=== PATIENT | male | born 1955 | race Caucasian/White ===

== ENCOUNTER → 2017-12-25 | Outpatient (CLI) | payer OTHER | LOC: LAB 16:07 → LAB SHORT 16:07 | DX: R31.9 Hematuria, unspecified (principal); R30.9 Painful micturition, unspecified | CPT/HCPCS: 87077; 87086; 87186 ==

== ENCOUNTER → 2018-12-19 | Outpatient (CLI) | payer OTHER ==
[~2018-12-19] MED LIST: SILDENAFIL20 MG PO
== END | disposition home or self-care (01) ==
LOC: LAB 17:45 → LAB SHORT 17:45
DX: L08.9 Local infection of the skin and subcutaneous tissue, unspecified (principal)
CPT/HCPCS: 87070; 87205

== ENCOUNTER 2024-02-04 06:46 | Day surgery (SDC) | payer OTHER ==
[2024-02-04] VITALS (12 sets, daily range): BP systolic 93–140; BP diastolic 61–85
[~2024-02-04] VITALS: Ht 167.6 cm; Wt 81.9 kg
[~2024-02-04 06:46] MED LIST changes: +LISI10 PO; +TURMERIC500 M2 PO; +VITAMIN D310 MC4 PO; +ZINC PO
[2024-02-04] MEDS ORDERED: Ropivacaine 0.5% HCl/Pf 123.125 MG,EPINEPHrine HCL 0.25 MG,Ketorolac Tromethamine 15 MG... INFIL SCH (07:30)
[2024-02-04] MEDS ORDERED: Acetaminophen 500 MG Tab PO SCH (07:30)
[2024-02-04] MEDS ORDERED: Tranexamic Acid 100 ML IV SCH (07:30)
[2024-02-04] MEDS ORDERED: Lactated Ringer's 1,000 ML IV SCH ×2 (07:30→09:45)
[2024-02-04] MEDS ORDERED: CeFAZolin Sodium 2,000 MG in NS 100 ML IV SCH ×2 (07:30→17:00)
[2024-02-04] MEDS ORDERED: Chlorhexidine Mouth Care 15 ML UDC MT SCH (07:30)
[2024-02-04] MEDS ORDERED: OxyCODONE HCL 10 MG TABCR PO SCH (07:30)
[2024-02-04] MEDS ORDERED: Acetaminophen 160MG / 5ML 10.15 UDC PO SCH ×2 (08:15→16:00)
[2024-02-04] MEDS ORDERED: propofoL 20 ML IV ONE (08:26)
[2024-02-04] MEDS ORDERED: propofoL 100 ML IV ONE (08:29)
[2024-02-04] MEDS ORDERED: Bupivacaine 0.75%/Dext 8.25% 2 ML Amp IT ONE (08:29)
[2024-02-04] MEDS ORDERED: Midazolam HCl 1MG / ML 2ML Vial IV ONE (08:30)
--- NOTE | 2024-02-04 08:38 | NUR ---
Ambulatory in Day SurgeryPre-Op teaching done. Pt verbalizes understanding. History, Chart, Medications and Allergies reviewed before start of procedure.Patient confirms NPO status and agrees with scheduled surgery.
[2024-02-04] MEDS ORDERED: Midazolam HCl 1MG / ML 2ML Vial ONE (08:43)
[2024-02-04] MEDS ORDERED: Ondansetron HCl 2 MG / ML 2ML Vial ONE (09:22)
[2024-02-04] MEDS ORDERED: Dexamethasone Sod Phos 10 MG/ML 1ML VIAL ONE (09:22)
[2024-02-04] MEDS ORDERED: Phenylephrine HCl 100 MCG/ML-NS 10MLSYR (1MG/10ML) ONE (09:22)
[2024-02-04] MEDS ORDERED: Ketorolac Tromethamine 30mg Vial ONE (09:37)
[2024-02-04] MEDS ORDERED: ePHEDrine Sulfate 50 MG/ML 1ML Injection ONE (09:39)
[2024-02-04] MEDS ORDERED: Bisacodyl 10 MG Supp PR PRN (09:40)
[2024-02-04] MEDS ORDERED: DiphenhydrAMINE HCL 25 MG Cap PO PRN (09:45)
[2024-02-04] MEDS ORDERED: FLU VACC TS2024-25(6MOS UP)/PF 45 MCG/0.5 ML SYRINGE IM ONE (09:45)
[2024-02-04] MEDS ORDERED: HYDROmorphone HCl/Pf 1MG SYR IV PRN (09:45)
[2024-02-04] MEDS ORDERED: OxyCODONE HCL 1 MG/ML 5MLUDC PO PRN (09:50)
[2024-02-04] MEDS ORDERED: OxyCODONE HCL 5 MG TAB PO PRN ×2 (09:50)
[2024-02-04] MEDS ORDERED: Metoclopramide HCl 5MG / ML 2ML Vial IV PRN (09:50)
[2024-02-04] MEDS ORDERED: Magnesium Hydroxide Conc 10 ML UDC PO PRN (09:50)
[2024-02-04] MEDS ORDERED: Promethazine HCl 25 MG Tab PO PRN (09:50)
[2024-02-04] MEDS ORDERED: Ondansetron HCl 2 MG / ML 2ML Vial IV PRN (09:50)
[2024-02-04] MEDS ORDERED: NS 250 ML IV PRN (11:50)
[2024-02-04] MEDS ORDERED: Ketorolac Tromethamine 15mg Vial IV SCH (12:00)
[2024-02-04] MEDS ORDERED: NS 500 ML IV ONE (12:09)
[2024-02-04] MEDS ORDERED: NS 500 ML IV PRN (14:05)
--- NOTE | 2024-02-04 16:09 | NUR ---
Pt. is awake in bed when he welcomes my visit. Pt. is pleasant. Daughter who is also a nurse is at bedside. 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 Facilitated a life update and pastoral encouragement is given. Pt. verbalized gratitude for the spiritual care visit.
[2024-02-04] MEDS ORDERED: ASPI81CH PO (16:10)
--- NOTE | 2024-02-04 17:36 | NUR ---
DISCHARGE PATIENT PASSES PT, VOIDS, VITALS ARE STABLE. PATIENT HAS ALL BELONGINGS AND DISCHARGE INSTRUCTIONS SIGNED AND UNDERSTOOD. FAMILY IS IN ROOM AND HELPFUL TO PATIENT WITH ADL'S. IV TAKEN OUT AND PATIENT LEAVES VIA PRIVATE VEHICLE.
[2024-02-04] MEDS ORDERED: Docusate Sodium 100 MG Cap PO SCH (21:00)
[2024-02-05] MEDS ORDERED: Lisinopril 10 MG Tab PO SCH (09:00)
[2024-02-05] MEDS ORDERED: Aspirin 81 MG Chew PO SCH (09:00)
[2024-02-05] MEDS ORDERED: Cholecalciferol 400 unit Tab PO SCH (09:00)
== END 2024-02-04 17:30 | disposition home or self-care (01) ==
LOC: ORSCMMR 06:46 → ORD 08:15 → SURS 10:41 → ORSCMMR 17:30
PROVIDERS: Orthopaedic Surgery
PROC: 8E0Y0CZ Robotic Assisted Procedure of Lower Extremity, Open Approach (ICD-10-PCS; principal; 2024-02-04 08:15)
PROC: 0SRC0JZ Replacement of Right Knee Joint with Synthetic Substitute, Open Approach (ICD-10-PCS; principal; 2024-02-04 08:15)
DX: M17.11 Unilateral primary osteoarthritis, right knee (principal); I10 Essential (primary) hypertension; Z79.899 Other long term (current) drug therapy
CPT/HCPCS: 73560-RT; 97110; 97116; 97161; 97530; A9270; C1713; C1776; J0171; J0690; J0735; J1100; J1885; J2250; J2371; J2405; J2704; J2795; J7040; J7120

== ENCOUNTER → 2024-04-21 | Outpatient (CLI) | payer OTHER ==
[~2024-04-21] MED LIST changes: +ASPI81CH PO
== END ==
LOC: LAB SHORT 15:43 → LAB 15:43
DX: E53.8 Deficiency of other specified B group vitamins (principal)
CPT/HCPCS: 82607

== ENCOUNTER 2024-06-16 06:56 | Day surgery (SDC) | payer OTHER ==
[2024-06-16] VITALS (14 sets, daily range): BP systolic 98–139; BP diastolic 53–78
[~2024-06-16] VITALS: Ht 167.6 cm; Wt 81.5 kg
[~2024-06-16 06:56] MED LIST changes: +Acetaminophen 500 MG Tab PO SCH; +CeFAZolin Sodium 2,000 MG in NS 100 ML IV SCH; +Chlorhexidine Mouth Care 15 ML UDC MT SCH; +FERROUS GLUCON324 M2 PO; +Lactated Ringer's 1,000 ML IV SCH; +OxyCODONE HCL 10 MG TABCR PO SCH; +Ropivacaine 0.5% HCl/Pf 123.125 MG,EPINEPHrine HCL 0.25 MG,Ketorolac Tromethamine 15 MG... INFIL SCH; +Tranexamic Acid 1,000 MG in NS 100 ML IV SCH; -ZINC PO; +ZINC220 PO
[2024-06-16] MEDS ORDERED: OxyCODONE HCL 5 MG TAB PO ONE (07:35)
[2024-06-16] MEDS ORDERED: Acetaminophen 160MG / 5ML 10.15 UDC PO SCH (07:35)
[2024-06-16] MEDS ORDERED: FentaNYL Citrate 50 MCG/ML 2 ML Injection ONE (07:42)
[2024-06-16] MEDS ORDERED: Midazolam HCl 1MG / ML 2ML Vial ONE (08:02)
[2024-06-16] MEDS ORDERED: propofoL 20 ML IV ONE ×4 (08:03→10:04)
[2024-06-16] MEDS ORDERED: Bupivacaine 0.5% HCl 5 MG/ML 30MLVIAL ONE (08:05)
[2024-06-16] MEDS ORDERED: Ketorolac Tromethamine 30mg Vial ONE (08:14)
[2024-06-16] MEDS ORDERED: Dexamethasone Sod Phos 10 MG/ML 1ML VIAL ONE (08:14)
[2024-06-16] MEDS ORDERED: Ondansetron HCl 2 MG / ML 2ML Vial ONE (08:14)
--- NOTE | 2024-06-16 08:28 | NUR ---
Ambulatory in Day Surgery. History, Chart, Medications and Allergies reviewed before start of procedure. Lungs clear T/O to Auscultation. Patient confirms NPO status and agrees with scheduled surgery. Pre-Op teaching done. Pt verbalizes understanding. PT BELONGINGS PLACED UNDERNEATH SARA FOR SAFEKEEPING. PT GLASSES GIVEN TO HIS SON VICENTE FOR SAFEKEEPING.
[2024-06-16] MEDS ORDERED: Phenylephrine HCl 100 MCG/ML-NS 10MLSYR (1MG/10ML) ONE (08:57)
[2024-06-16] MEDS ORDERED: OxyCODONE HCL 1 MG/ML 5MLUDC PO PRN (09:20)
[2024-06-16] MEDS ORDERED: OxyCODONE HCL 5 MG TAB PO PRN ×2 (09:20→09:25)
[2024-06-16] MEDS ORDERED: Ondansetron HCl 2 MG / ML 2ML Vial IV PRN (09:25)
[2024-06-16] MEDS ORDERED: Promethazine HCl 25 MG Tab PO PRN (09:25)
[2024-06-16] MEDS ORDERED: DiphenhydrAMINE HCL 25 MG Cap PO PRN (09:25)
[2024-06-16] MEDS ORDERED: FLU VACC TS2024-25(6MOS UP)/PF 45 MCG/0.5 ML SYRINGE IM SCH (09:30)
[2024-06-16] MEDS ORDERED: Metoclopramide HCl 5MG / ML 2ML Vial IV PRN (09:30)
[2024-06-16] MEDS ORDERED: Bisacodyl 10 MG Supp PR PRN (09:30)
[2024-06-16] MEDS ORDERED: HYDROmorphone HCl/Pf 1MG SYR IV PRN (09:30)
[2024-06-16] MEDS ORDERED: Magnesium Hydroxide Conc 10 ML UDC PO PRN (09:30)
[2024-06-16] MEDS ORDERED: Lactated Ringer's 1,000 ML IV SCH (09:30)
[2024-06-16] MEDS ORDERED: ePHEDrine Sulfate 50 MG/ML 1ML Injection ONE (09:37)
[2024-06-16] MEDS ORDERED: Ketorolac Tromethamine 15mg Vial IV SCH (12:00)
--- NOTE | 2024-06-16 14:15 | NUR ---
POST OP NOTE PT TO ROOM 220 FROM PACU. ALERT, RESPONSIVE, DENIES PAIN AND NAUSEA. DRESSING TO L KNEE C/D/I. VSS. SOME NUMBNESS FROM SPINAL. TOLERATING PO FLUIDS AND SNACKS. INSTRUCTED TOLL GATE TENDER LIGHT USE, CALL LIGHT IN REACH.
--- NOTE | 2024-06-16 15:19 | NUR ---
Pt. is awake in bed and welcomes my visit. Pt. is pleasant and is known to this steam box hand from previous hospital visits. Rapport is quickly re-established. Considered matters of grief and life and pastoral care is given as he tells of the years since his spouse passed. Pt. displays a positive and bouyant attitude. Prayed with Pt. Pt. verbalized gratitude for the spiritual care visit.
[2024-06-16] MEDS ORDERED: Acetaminophen 500 MG Tab PO SCH (16:00)
[2024-06-16] MEDS ORDERED: CeFAZolin Sodium 2,000 MG in NS 100 ML IV SCH (16:00)
--- NOTE | 2024-06-16 16:27 | NUR ---
SHIFT SUMMARY PT IS POD0 FOR L TKA. ALERT, RESPONSIVE, FOLLOWING COMMANDS. DRESSING TO L KNEE C/D/I, CAP REFILL 1 SEC, PT REPORTS FULL SENSATION TO BLE. VSS. 1 ASST W/ FWW AND GB. TOLERATING REG DIET, PO FLUIDS, VOIDING APPROPRIATELY. PAIN TOLERABLE W/ PAIN MEDS PER EMAR. HELEN STOCK, POLAR PACK ON. PT WILL WORK W/ PT AND IS HOPING TO DC HOME TONIGHT. USING CALL LIGHT APPROPRIATELY.
[2024-06-16] MEDS ORDERED: ASPI81CH PO ×2 (18:30→18:36)
--- NOTE | 2024-06-16 19:33 | NUR ---
SHIFT SUMMARY PT IS ALERT, RESPONSIVE, FOLLOWING COMMANDS. 1 ASST W/ FWW AND GB TO BR. PT IS TOLERATING REG DIET, PO FLUIDS, VOIDING APPROPRIATELY. CAP REFILL 2 SECS IN L TOES, DRESSING C/D/I, PT DENIES N/T. PT COMPLAINING OF SENSATION OF SOCK BUNCHED UNDERNEATH FOOT AND SLIGHT TINGING IN TOES OF L FOOT, NOTIFIED MARIANA VALDEZ, CONFIRMED THAT PT IS OK TO GO HOME. INSTRUCTED PT TO CALL OFFICE IF SENSATION DOES NOT GO AWAY BY TOMORROW. PT MEDICATED FOR MILD PAIN W/ GOOD RESULTS, PT STATES HE IS COMFORTABLE. DC INSTRUCTIONS REVIEWED W/ PT AND COPY GIVEN, DRESSING CHANGES GIVEN WELL. PAIN MEDS ARE FILLED AT HOME. VSS. AMBULATED IN HALLWAYS MULTIPLE TIMES. DC'D IN STABLE CONDITION VIA WC W/ BELONGINGS TO PRIVATE RIDE HOME.
[2024-06-16] MEDS ORDERED: Docusate Sodium 100 MG Cap PO SCH (21:00)
[2024-06-17] MEDS ORDERED: Lisinopril 10 MG Tab PO SCH (09:00)
[2024-06-17] MEDS ORDERED: Cholecalciferol 400 unit Tab PO SCH (09:00)
[2024-06-17] MEDS ORDERED: Aspirin 81 MG Chew PO SCH (09:00)
[2024-06-17] MEDS ORDERED: Ferrous Sulfate 325 MG Tab PO SCH (09:00)
== END 2024-06-16 19:14 | disposition home or self-care (01) ==
LOC: ORSCMMR 06:56 → ORD 08:15 → ORSCMMR 08:15 → SURS 11:35 → ORSCMMR 19:14
PROVIDERS: Orthopaedic Surgery
PROC: 8E0Y0CZ Robotic Assisted Procedure of Lower Extremity, Open Approach (ICD-10-PCS; principal; 2024-06-16 08:15)
PROC: 0SRD0JA Replacement of Left Knee Joint with Synthetic Substitute, Uncemented, Open Approach (ICD-10-PCS; principal; 2024-06-16 08:15)
DX: M17.12 Unilateral primary osteoarthritis, left knee (principal); I10 Essential (primary) hypertension; Z79.899 Other long term (current) drug therapy; Z96.651 Presence of right artificial knee joint
CPT/HCPCS: 73560-LT; 97110; 97116; 97162; A9270; C1713; C1776; J0171; J0690; J0735; J1100; J1885; J2250; J2371; J2405; J2704; J2795; J3010; J7120

== ENCOUNTER 2024-08-27 13:36 | Day surgery (SDC) | payer OTHER ==
[~2024-08-27] VITALS: Ht 170.2 cm; Wt 81.6 kg
[2024-08-27] VITALS (9 sets, daily range): BP systolic 96–128; BP diastolic 54–85
[~2024-08-27 13:36] MED LIST changes: -Acetaminophen 500 MG Tab PO SCH; -Chlorhexidine Mouth Care 15 ML UDC MT SCH; -OxyCODONE HCL 10 MG TABCR PO SCH; -Ropivacaine 0.5% HCl/Pf 123.125 MG,EPINEPHrine HCL 0.25 MG,Ketorolac Tromethamine 15 MG... INFIL SCH; -Tranexamic Acid 1,000 MG in NS 100 ML IV SCH
[2024-08-27] MEDS ORDERED: FentaNYL Citrate 50 MCG/ML 2 ML Injection ONE (13:56)
[2024-08-27] MEDS ORDERED: propofoL 20 ML IV ONE (13:56)
--- NOTE | 2024-08-27 14:03 | NUR ---
History, Chart, Medications and Allergies reviewed before start of procedure. Lungs clear T/O to Auscultation. Pre-Op teaching done. Pt verbalizes understanding. Patient reports completing Chlorhexadine shower X2 prior to admission to hospital.
[2024-08-27] MEDS ORDERED: Bupivacaine 0.5% W/EPI 1:200000 SDV 30 ML Vial ONE (14:08)
[2024-08-27] MEDS ORDERED: Ondansetron HCl 2 MG / ML 2ML Vial ONE (14:45)
[2024-08-27] MEDS ORDERED: Dexamethasone Sod Phos 10 MG/ML 1ML VIAL ONE (14:45)
[2024-08-27] MEDS ORDERED: Ketorolac Tromethamine 30mg Vial ONE (14:45)
[2024-08-27] MEDS ORDERED: Phenylephrine HCl 100 MCG/ML-NS 10MLSYR (1MG/10ML) ONE (14:50)
[2024-08-27] MEDS ORDERED: OxyCODONE HCL 5 MG TAB PO PRN (15:40)
--- NOTE | 2024-08-27 15:51 | NUR ---
REPORT RECEIVED FROM SHERYL GHOSH. VSS. PT ON RA. PT A&OX4. PT ABLE TO REPOSITION SELF IN BED. PT REQUESTING PO FOOD AND FLUIDS AND TOLERATING THEM WELL. PT DENIES PAIN, NAUSEA OR OTHER DISCOMFORTS. PT HAS YAW DRSG TO RIGHT KNEE THAT IS CDI. PT FRIEND TOMAS AT BEDSIDE.
--- NOTE | 2024-08-27 16:20 | NUR ---
Patient up to Ambulate independently. Gait steady. VSS AND CONSISTENT WITH PT BASELINE. PT HAS NO COMPLAINTS AND VERBALIZES READINESS TO GO HOME. Discharge instructions reviewed with patient. Patient verbalizes understanding. Copy given to patient to take home. Dressing to procedure site clean, dry, intact with no visible drainage, swelling, erythema or bruising noted. Patient States Post-Procedure ride home has been arranged. Discharged via wheelchair to private car for ride home. PT BELONGINGS RETURNED TO PT.
== END 2024-08-27 16:20 | disposition home or self-care (01) ==
LOC: ORSCMMR 13:36 → ORD 14:10 → ORSCMMR 15:00
PROVIDERS: Orthopaedic Surgery
PROC: 0SBC0ZZ Excision of Right Knee Joint, Open Approach (ICD-10-PCS; principal; 2024-08-27 15:00)
DX: M71.38 Other bursal cyst, other site (principal); Z96.652 Presence of left artificial knee joint; I10 Essential (primary) hypertension; Z79.82 Long term (current) use of aspirin; Z79.899 Other long term (current) drug therapy
CPT/HCPCS: 88304; J0690; J1100; J1885; J2371; J2405; J2704; J3010; J7120